=== PATIENT | female | born 1935 | race Caucasian/White ===

== ENCOUNTER 2017-12-01 15:47 | Inpatient (IN) | payer MEDICARE ==
[~2017-12-01] VITALS: Ht 165.1 cm; Wt 55.3 kg
[2017-12-01] MEDS ORDERED: ACETAMINOPHEN 500 MG TAB (TYLENOL) PO PRN (16:00)
[2017-12-01] MEDS ORDERED: PATIENT MAY USE OWN MEDS, ALL PO SCH (16:00)
[2017-12-01] MEDS ORDERED: ONDANSETRON 4 MG/2 ML (SDV) Z0FRAN IV PRN (16:00)
[2017-12-01] MEDS ORDERED: CLINDAMYCIN 900 MG/50 ML IVPB 50 ML IV NR (16:00)
--- OUTSIDE RECORDS SUMMARY | 2017-12-01 16:09 | XMS REPORT ---
Author Author Mery Wasserman Organization [facility] Address [address] [facility] [address] [place], [place] [address] Care Team Providers Care Associate Buyer Name Role Phone Mery Wasserman PCP Allergies and Adverse Reactions Name Reaction Notes NO KNOWN DRUG ALLERGIES Plan of Treatment Planned Activity Comments Planned Date Planned Time Plan/Goal VIDEO SWALLOW 10/30/2016 12:00 AM Medications Active Name Start Date Estimated Completion Date SIG Comments acetaminophen 160 mg/5 mL oral liquid take 20.3 milliliters by oral route every 4 hours alprazolam 0.25 mg oral tablet take 1 tablet (0.25 mg) by oral route at HS docusate sodium 60 mg/15 mL oral syrup take 25 milliliters (100 mg) by oral route once daily ergocalciferol (vitamin D2) 50,000 unit oral capsule take 1 capsule by oral route once daily x 14 days started 10-30-16 folic acid 800 mcg oral tablet take 1 tablet (0.8 mg) by oral route once daily gabapentin 250 mg/5 mL (5 mL) oral solution take 4 milliliters by oral route every 8 hrs for seizures levothyroxine 25 mcg oral tablet take 1 tablet (25 mcg) by oral route once daily melatonin 5 mg oral capsule take 1 capsule by oral route at HS methotrexate sodium 25 mg/mL injection solution inject 17.5mg subq one time a day every 7 days for RA methotrexate sodium 25 mg/mL injection solution inject 17.5mg subq one time a day every 7 days for RA methotrexate sodium 25 mg/mL injection solution inject 17.5mg subq one time a day every 7 days for RA Miralax 17 gram/dose oral powder take 17 gram mixed with 8 oz. water, juice, soda, coffee or tea by oral route once daily oxycodone 5 mg/5 mL oral solution take 5 milliliters (5 mg) by oral route every 4 hours as needed for pain paroxetine HCl 40 mg oral tablet take 1 tablet (40 mg) by oral route once daily Pravachol 40 mg oral tablet take 1 tablet (40 mg) by oral route once daily prednisone 5 mg oral tablet take 0.5 mg/kg by oral route once daily senna 8.8 mg/5 mL oral syrup take 2 milliliters by oral route every 12 hours trazodone 100 mg oral tablet take 1 tablet (100 mg) by oral route once daily at bedtime Discontinued Name Start Date Discontinued Date SIG Comments Retin-A topical cream 0.025 % 10/30/2016 apply to the affected area(s) by topical route once daily at bedtime Orencia subcutaneous syringe 125 mg/mL 10/30/2016 inject 1 milliliter (125 mg) by subcutaneous route once weekly Rheumatrex oral tablets,dose pack 2.5 mg 10/30/2016 prednisone oral 10/30/2016 Synthroid oral 10/30/2016 Paxil oral 10/30/2016 Ambien oral 10/30/2016 Xanax oral 10/30/2016 Hizentra subcutaneous 10/30/2016 Problem List Not available. Vital Signs Date Time BP-Sys(mm[Hg] BP-Tram(mm[Hg]) HR(bpm) RR(rpm) Temp WT HT HC BMI BSA BMI Percentile O2 Sat(%) 10/30/2016 10:15:00 AM 100 mmHg 68 mmHg 97 bpm 16 rpm 99.9 F 104.25 lbs 67 in 16.33 kg/m2 1.50 m2 91 % Social History Name Description Comments non smoker No Alcohol Use Tobacco Never smoker History of Procedures Not available. Results Summary Not available. History Of Immunizations Not available. History of Past Illness Name Date of Onset Comments Actinic keratoses Lentigines Seborrheic keratoses Dermatofibroma Verruca Vulgaris Neoplasm of skin Seborrheic dermatitis Scar/Cicatrix Impetigo Xerosis of skin Alopecia Mitral valve prolapse Cataract Rheumatoid arthritis Dysphagia Oct 30 2016 11:20AM Payers Not available. History of Encounters Visit Date Visit Type Provider 10/30/2016 Office visit Mery Wasserman MD
--- OUTSIDE RECORDS SUMMARY | 2017-12-01 16:09 | XMS REPORT ---
Author Author Reyes Cervantes [facility] Address [address] [place], [place] [id number] Care Team Providers Care Victim Advocate Name Role Phone Reyes Cervantes PCP ArnoldMery griffin PreferredProvider Allergies and Adverse Reactions Name Reaction Notes NO KNOWN DRUG ALLERGIES Plan of Treatment Not available. Medications Active Name Start Date Estimated Completion Date SIG Comments acetaminophen 160 mg/5 mL oral liquid take 20.3 milliliters by oral route every 4 hours docusate sodium 60 mg/15 mL oral syrup take 25 milliliters (100 mg) by oral route once daily ergocalciferol (vitamin D2) 50,000 unit oral capsule take 1 capsule by oral route once daily x 14 days started 2-10-17 melatonin 5 mg oral capsule take 1 [...] every 4 hours as needed for pain prednisone 5 mg oral tablet take 0.5 mg/kg by oral route once daily senna 8.8 mg/5 mL oral syrup take 2 milliliters by oral route every 12 hours folic acid 400 mcg oral tablet 11/05/2016 06/03/2017 take 1 tablet (0.4 mg) by oral route once daily for 30 days trazodone 100 mg oral tablet 11/05/2016 05/04/2017 take 1 tablet (100 mg) by oral route once daily at bedtime for 30 days paroxetine HCl 40 mg oral tablet 11/05/2016 05/04/2017 take 1 tablet (40 mg) by oral route once daily for 30 days Pravachol 40 mg oral tablet 11/05/2016 05/04/2017 take 1 tablet (40 mg) by oral route once daily for 30 days levothyroxine 25 mcg oral tablet 11/05/2016 05/04/2017 take 1 tablet (25 mcg) by oral route once daily for 30 days alprazolam 0.25 mg oral tablet 11/05/2016 12/05/2016 take 1 tablet (0.25 mg) by oral route at HS for 30 days Discontinued Name Start Date Discontinued Date SIG [...] 10/30/2016 Xanax oral 10/30/2016 Hizentra subcutaneous 10/30/2016 gabapentin 250 mg/5 mL (5 mL) oral solution 11/12/2016 11/17/2016 take 4 milliliters by oral route every 8 hrs for seizures for 30 days Problem List Not available. Vital Signs Date Time BP-Sys(mm[Hg] BP-Tram(mm[Hg]) HR(bpm) RR(rpm) Temp WT HT HC BMI BSA BMI Percentile O2 Sat(%) 11/13/2016 3:38:00 PM 124 mmHg 62 mmHg 86 bpm 16 rpm 98 F 106 lbs 95 % 10/30/2016 10:15:00 AM 100 mmHg 68 mmHg 97 bpm 16 rpm 99.9 F 104.25 lbs 67 in 16.3277 kg/m 1.4951 m 91 % Social History Name Description Comments non smoker No Alcohol Use Tobacco Never smoker History of Procedures Date Ordered Description Order Status 10/30/2016 12:00 AM CINE/VID X-RAY THROAT/ESOPH Returned Results Summary Not available. History Of Immunizations Not available. History of Past Illness Name Date of Onset Comments Actinic keratoses Lentigines Seborrheic keratoses Dermatofibroma Verruca Vulgaris Neoplasm of skin Seborrheic dermatitis Scar/Cicatrix Impetigo Xerosis of skin Alopecia Mitral valve prolapse Cataract Rheumatoid arthritis Dysphagia Oct 30 2016 11:20AM Oropharyngeal dysphagia Nov 13 2016 3:42PM Gastrostomy tube dependent Nov 13 2016 3:42PM Seizure prophylaxis Nov 13 2016 3:42PM Skin lesions Nov 13 2016 3:42PM Payers Insurance Name Company Name Plan Name Plan Number Policy Number Policy Group Number Start Date Medicare RHC Medicare RHC [id number] Wednesday, 2001 [employer]BS [employer] [facility] [id number] Thursday, 2008 Medicare Part A Medicare - Lab/Xray [id number] Wednesday, December 19, 2001 History of Encounters Visit Date Visit Type Provider 11/13/[address] Reyes Cervantes MD 10/30/2016 Office visit Mery Wasserman MD
--- OUTSIDE RECORDS SUMMARY | 2017-12-01 16:09 | XMS REPORT ---
Author Author Reyes Cervantes [facility] Address [address] [facility] [address] [place], [place] [address] Care Team Providers Care Strip Machine Operator Name Role Phone Reyes Cervantes PCP ArnoldMery [...] oral route at HS for 30 days gabapentin 250 mg/5 mL (5 mL) oral solution 11/12/2016 12/12/2016 take 4 milliliters by oral route every 8 hrs for seizures for 30 days Discontinued Name Start Date [...] arthritis Dysphagia Oct 30 2016 11:20AM Payers Insurance Name Company Name Plan Name Plan Number Policy Number Policy Group Number Start Date Medicare RHC Medicare RHC [id number] Wednesday, 2001 BCBS [employer] [facility] [id number] Thursday, 2008 Medicare Part A Medicare - Lab/Xray [id number] Wednesday, December 19, 2001 History of Encounters Visit Date Visit Type Provider 11/13/[address] Reyes Cervantes MD 10/30/2016 Office visit Mery Wasserman MD
--- OUTSIDE RECORDS SUMMARY | 2017-12-01 16:09 | XMS REPORT ---
Author Author Mery Wasserman Organization [facility] Address [address] [place], [place] [address] Care Team Providers Care Dividend Clerk Name Role Phone Mery Wasserman PCP Mery Wasserman PreferredProvider Allergies and Adverse Reactions Name Reaction [...] Group Number Start Date Medicare RHC Medicare [facility] [id number] Wednesday, 2001 BCBS [employer] [facility] [id number] Thursday, 2008 Medicare Part A Medicare - Lab/Xray [id number] Wednesday, December 19, 2001 History of Encounters Visit Date Visit Type Provider 10/30/2016 Office visit Mery Wasserman MD
--- OUTSIDE RECORDS SUMMARY | 2017-12-01 16:10 | XMS REPORT ---
Author Author Mery Wasserman Organization [facility] Address [address] [place], [place] [address] Care Team Providers Care Director Private Name Role Phone Mery Wasserman PCP Mery [...] Group Number Start Date Medicare RHC Medicare [facility] [id number] Wednesday, 2001 BCBS Bcbs [facility] [id number] Thursday, 2008 Medicare Part A Medicare - Lab/Xray [id number] Wednesday, December 19, 2001 History of Encounters Visit Date Visit Type Provider 10/30/2016 Office visit Mery Wasserman MD
--- OUTSIDE RECORDS SUMMARY | 2017-12-01 16:10 | XMS REPORT | CCD ---
Author Author GRANT SPARKS Unknown Address [address] [facility] [address] [place] [address] Care Team Providers Care Yarn Dumper Name Role Phone DK SALGADO, SAIRA ROJAS Attphys S., FABRICIO A NASST O., ISAIAS B NASST G., GEOVANNY NASST M., CANDIS NASST T., LAKYN NASST D., DJOANNA NASST H., NANCY NASST D., KAREN NASST D., ISAIAS T NASST M., SILVESTRE NASST S., SUNITA [place] NASST B., TITO NASST S., SUNG NASST A., TYE Peguero NASST S., ALLEN Yee NASST R., JADE NASST Allergies Allergy Code Allergy Type Reaction Status NO KNOWN DRUG ALLERGIES - NKDA 0 Drug allergy Active Active Medications Medication Code Dose Units Frequency Route Modification Start Date/Time traMADol HCl 50MG Oral Tablet 043458 50 MILLIGRAMS FOUR TIMES A DAY BY MOUTH 03/10/2017 14:35 Prescription Detail 50 MILLIGRAMS BY MOUTH FOUR TIMES A DAY x 1 week, then q 4 hrs PRN pain HYDROcodone bitartrate-acetaminophen 5MG-325MG Oral Tablet 519797 1 TABLET NEEDED BY MOUTH 03/10/2017 14 :34 Prescription Detail 1 TABLET BY MOUTH NEEDED Acetaminophen 325MG Oral Tablet 320948 650 MILLIGRAMS NEEDED BY MOUTH 03/10/2017 14:33 Prescription Detail 650 MILLIGRAMS BY MOUTH NEEDED Cephalexin 500MG Oral Capsule 644273 500 MILLIGRAMS EVERY 12 HOURS BY MOUTH 03/10/2017 14:33 Prescription Detail 500 MILLIGRAMS BY MOUTH EVERY 12 HOURS Mupirocin 2% Topical application Ointment 788884 1 EACH TWO TIMES A DAY TOPICAL APPLICATION 03/10/2017 14: 33 Prescription Detail 1 EACH TOPICAL APPLICATION TWO TIMES A DAY Aspirin 325MG Oral Tablet, Enteric Coated 201714 1 TABLET TWO TIMES A DAY BY MOUTH 03/01/2017 07:46 Prescription Detail 1 TABLET BY MOUTH TWO TIMES A DAY start 24hrs after the last Xarleto dose for 30 days Caltrate 600 + D 600MG-200IU Oral Tablet 9740488 1 EACH DAILY ORAL 03/01/2017 07:46 Prescription Detail 1 EACH ORAL DAILY Folic Acid 800 MCG Oral Tablet [id number] 800 MCG DAILY ORAL 03/01/2017 07:46 Prescription Detail 800 MCG ORAL DAILY Multivitamin Oral Tablet 4281897 1 EACH DAILY ORAL 03/01/2017 07:46 Prescription Detail 1 EACH ORAL DAILY Natural Fish Oil 1200 MG Oral Capsule, Liquid Filled [id number] 1200 MG DAILY ORAL 03/01/2017 07:46 Prescription Detail 1200 MG ORAL DAILY Orencia 250MG Intravenous Powder for Solution 689731 250 MILLIGRAMS MONTHLY INTRAVENOUS 03/01/2017 07:46 Prescription Detail 250 MILLIGRAMS INTRAVENOUS MONTHLY Paxil 40MG Oral Tablet 932784 40 MILLIGRAMS AT BEDTIME ORAL 03/01/2017 07:46 Prescription Detail 40 MILLIGRAMS ORAL AT BEDTIME Pravastatin Sodium 40MG Oral Tablet 650226 40 MILLIGRAMS DAILY ORAL 03/01/2017 07:46 Prescription Detail 40 MILLIGRAMS ORAL DAILY Synthroid 25MCG Oral Tablet 781774 25 MCG DAILY ORAL 03/01/2017 07:46 Prescription Detail 25 MCG ORAL DAILY traZODone hydrochloride 50MG Oral Tablet 775121 1.5 TABLET AT BEDTIME ORAL 03/01/2017 07:46 Prescription Detail 1.5 TABLET ORAL AT BEDTIME Vitamin D 1000IU Oral Tablet 541858 0900 INTERNATIONAL UNITS FOUR TIMES A DAY ORAL 03/01/2017 07:46 Prescription Detail 1000 INTERNATIONAL UNITS ORAL FOUR TIMES A DAY Xanax 0.5MG Oral Tablet 072583 0.5 MILLIGRAMS AT BEDTIME ORAL 03/01/2017 07:46 Prescription Detail 0.5 MILLIGRAMS ORAL AT BEDTIME Docusate Sodium 100MG Oral Capsule, Liquid Filled 2527473 100 MILLIGRAMS TWO TIMES A DAY BY MOUTH 2016 07:44 Prescription Detail 100 MILLIGRAMS BY MOUTH TWO TIMES A DAY as needed for constipation Problems Problem Code Start Date Resolved Date Status Capital femoral epiphyseal fracture of left hip, initial encounter for closed fracture 925112693 02/25/2017 Active Post op pain 981050296 02/25/2017 Active Procedures Procedure Code Procedure Type Date Reposition Left Upper Femur with Internal Fixation Device, Percutaneous Ap [id number] ICD-10 PCS 02/25/2017 PT THERAPEUTIC EXERCISES [address] 2016 OT EVAL; MOD 037120610 SNOMED CT 02/27/2017 PT THERAPEUTIC ACT. ONE ON ONE EA [address] 02/26/2017 PT EVALUATION; LOW 687939401 SNOMED CT 02/26/2017 HIP [address] 02/26/2017 CT EXT LOWER W/O CONTRAST 642303585 SNOMED CT 02/25/2017 HIP COMP MIN [address] 02/25/2017 CT HEAD W/O CONTRAST 363031826 SNOMED CT 02/25/2017 BASIC METABOLIC PANEL 592806118 SNOMED CT 02/27/2017 CBC W/ AUTO DIFF (RFLX MAN DIFF IF IND) 9463878 SNOMED CT 02/27/2017 UA ROUTINE C&S IF IND 563816435 SNOMED CT 02/25/2017 TYPE AND SCREEN 46551159 SNOMED CT 02/25/2017 BASIC METABOLIC PANEL 858286585 SNOMED CT 02/25/2017 CBC W/ AUTO DIFF (RFLX MAN DIFF IF IND) 4041945 SNOMED CT 02/25/2017 FLUOROSCOPY < [address] 02/26/2017 INCENTIVE SPIROMETRY X [address] 02/26/2017 ^CBC W/ MANUAL DIFF 00484173 SNOMED CT 02/27/2017 ^UA AUTO DIPSTICK ONLY 396246684 SNOMED CT 02/25/2017 ^CBC W/ MANUAL DIFF 95762184 SNOMED CT 02/25/2017 Results BASIC METABOLIC PANEL - Collect Date/Time: 02/27/2017 06:15 Test Name Code Test Result Test Units Test Ref Range GLUCOSE 2345-7 107 MG/DL L=70 H=100 SODIUM 2951-2 138 MEQ/L L=135 H=148 POTASSIUM 2823-3 3.9 MEQ/L L=3.5 H=5.3 CHLORIDE 2075-0 104 MEQ/L L=96 H=110 CO2 2028-9 27 MEQ/L L=22 H=29 BUN 3094-0 5 MG/DL L=8 H=22 CREATININE 2160-0 0.7 MG/DL L=0.6 H=1.6 CALCIUM 86368-7 9.7 MG/DL L=8.2 H=10.6 AGE 28756-9 81 yrs GFR NonAA 90095-0 81 GFR AA 72027-1 98 eGFR 05417-7 >60 N/A eGFR AA* 30271-5 >60 N/A BASIC METABOLIC PANEL - Collect Date/Time: 02/25/2017 10:50 Test Name Code Test Result Test Units Test Ref Range GLUCOSE 2345-7 109 MG/DL L=70 H=100 SODIUM 2951-2 136 MEQ/L L=135 H=148 POTASSIUM 2823-3 4.0 MEQ/L L=3.5 H=5.3 CHLORIDE 2075-0 102 MEQ/L L=96 H=110 CO2 2028-9 28 MEQ/L L=22 H=29 BUN 3094-0 15 MG/DL L=8 H=22 CREATININE 2160-0 0.7 MG/DL L=0.6 H=1.6 CALCIUM 40886-9 10.9 MG/DL L=8.2 H=10.6 AGE 44415-8 81 yrs GFR NonAA 41406-4 81 GFR AA 78041-0 98 eGFR 16893-2 >60 N/A eGFR AA* 12386-1 >60 N/A CBC W/ AUTO DIFF (RFLX MAN DIFF IF IND) - Collect Date/Time: 02/27/2017 06:15 Test Name Code Test Result Test Units Test Ref Range WBC 73124-0 11.9 TH/CMM L=4.5 H=10.8 RBC 789-8 3.83 ML/CMM L=4.20 H=5.40 HGB 718-7 12.2 G/DL L=12.0 H=16.0 HCT 4544-3 38.5 % L=37.0 H=47.0 MCV 19378-4 101 FL L=81 H=99 MCH 69063-9 31.9 PG L=27.0 H=33.0 MCHC 20707-1 31.7 G/DL L=31.0 H=36.0 [place] [address]-5 51 FL L=36 H=50 [place] [address]-3 13.9 % L=0.0 H=14.8 MPV 48646-8 10.0 FL L=9.3 H=12.5 PLT 777-3 121 TH/CMM L=130 H=440 NRBC# 37819-2 0.00 TH/CMM L=0.00 H=0.00 NRBC% 11381-6 0.0 /100WBC L=0.0 H=2.0 %NEUT 19230-7 84.7 % %LYMP 38487-9 5.0 % %MONO 48868-3 8.2 % %EOS 26915-8 1.3 % %BASO 20153-4 0.3 % #NEUT 27157-1 10.08 TH/CMM L=2.10 H=8.20 #LYMP 37953-4 0.60 TH/CMM L=0.90 H=5.20 #MONO 72626-8 0.97 TH/CMM L=0.16 H=1.00 #EOS 94241-5 0.16 TH/CMM L=0.00 H=0.80 #BASO 45266-5 0.03 TH/CMM L=0.00 H=0.20 SEGS 63012-5 84 % BANDS 52604-5 1 % LYMPHS 44896-1 7 % MONOS 12443-3 8 % MANUAL DIFF 57662-4 SEE BELOW N/A CBC W/ AUTO DIFF (RFLX MAN DIFF IF IND) - Collect Date/Time: 02/25/2017 10:50 Test Name Code Test Result Test Units Test Ref Range WBC 48618-7 17.7 TH/CMM L=4.5 H=10.8 RBC 789-8 4.00 ML/CMM L=4.20 H=5.40 HGB 718-7 13.0 G/DL L=12.0 H=16.0 HCT 4544-3 39.2 % L=37.0 H=47.0 MCV 11785-3 98 FL L=81 H=99 MCH 85187-3 32.5 PG L=27.0 H=33.0 MCHC 79033-7 33.2 G/DL L=31.0 H=36[place]0 [place] [address]-0 49 FL L=36 H=50 [place] [address]-2 13.6 % L=0.0 H=14.8 MPV 09622-9 10.3 FL L=9.3 H=12.5 PLT 777-3 151 TH/CMM L=130 H=440 NRBC# 41642-2 0.00 TH/CMM L=0.00 H=0.00 NRBC% 44496-9 0.0 /100WBC L=0.0 H=2.0 %NEUT 51290-5 89.9 % %LYMP 81426-3 2.7 % %MONO 60770-7 6.4 % %EOS 33839-0 0.2 % %BASO 77797-2 0.2 % #NEUT 83301-5 15.90 TH/CMM L=2.10 H=8.20 #LYMP 84179-4 0.48 TH/CMM L=0.90 H=5.20 #MONO 46381-8 1.13 TH/CMM L=0.16 H=1.00 #EOS 16993-5 0.03 TH/CMM L=0.00 H=0.80 #BASO 90504-1 0.04 TH/CMM L=0.00 H=0.20 SEGS 85625-6 90 % BANDS 07547-3 0 % LYMPHS 55177-7 4 % MONOS 42690-3 6 % MANUAL DIFF 45878-5 SEE BELOW N/A UA ROUTINE C&S IF IND - Collect Date/Time: 02/25/2017 11:49 Test Name Code Test Result Test Units Test Ref Range COLOR YELLOW N/A NL: YELLOW APPEARANCE CLEAR N/A NL: CLEAR SPEC GRAV 1.010 N/A NL: 1.002 - 1.022 pH 7.5 N/A NL: 5 - 9 PROTEIN NEGATIVE N/A NL: NEGATIVE mg/dl GLUCOSE NEGATIVE N/A NL: NEGATIVE mg/dl KETONE NEGATIVE N/A NL: NEGATIVE mg/dl BILIRUBIN NEGATIVE N/A NL: NEGATIVE BLOOD NEGATIVE N/A NL: NEGATIVE NITRITE NEGATIVE N/A NL: NEGATIVE LEUK SCREEN NEGATIVE N/A NL: NEGATIVE MICRO INDICATED? NOT INDICATED N/A TYPE AND SCREEN - Collect Date/Time: 02/25/2017 10:50 Test Name Code Test Result Test Units Test Ref Range ABO/Rh Type 895-3 O Positive N/A Antibody Screen-Gel 895-3 Negative N/A Function Status Unknown or Not Available. History of Immunizations Immunization Code Date influenza, split (incl. purified surface antigen) 15 07/01/2001 influenza, split (incl. purified surface antigen) 15 07/06/2002 influenza, split (incl. purified surface antigen) 15 06/28/2003 pneumococcal polysaccharide PPV23 33 10/16/2016 Plan of Treatment Unknown or Not Available. Social History Smoking Status Code Start Date End Date Never smoker [id number] Vital Signs Vital Sign Value Unit Date/Time Recent/Initial? BMI (Body Mass Index) 18.32 kg/m2 02/25/2017 10:57 Initial VS Weight Measured 111.98 [lb_av] 02/25/2017 10:57 Initial VS Height 66 [in_i] 02/25/2017 10:57 Initial VS BSA (Body Surface Area) 1.55 m2 02/25/2017 10:57 Initial VS BMI (Body Mass Index) 18.32 kg/m2 02/25/2017 11:30 Most Recent VS Weight Measured 113.5 [lb_av] 02/25/2017 11:30 Most Recent VS Height 66 [in_i] 02/25/2017 11:30 Most Recent VS BSA (Body Surface Area) 1.55 m2 02/25/2017 11:30 Most Recent VS BP Systolic 146 mm[Hg] 02/25/2017 11:30 Initial VS BP Diastolic 90 mm[Hg] 02/25/2017 11:30 Initial VS Respiratory Rate 18 /min 02/25/2017 11:30 Initial VS Heart Rate 84 /min 02/25/2017 11:30 Initial VS O2 % BldC Oximetry 93 % 02/25/2017 11:30 Initial VS Body Temperature 99.7 [degF] 02/25/2017 11:30 Initial VS BP Systolic 150 mm[Hg] 03/01/2017 08:00 Most Recent VS BP Diastolic 71 mm[Hg] 03/01/2017 08:00 Most Recent VS Respiratory Rate 18 /min 03/01/2017 08:00 Most Recent VS Heart Rate 80 /min 03/01/2017 08:00 Most Recent VS O2 % BldC Oximetry 93 % 03/01/2017 08:00 Most Recent VS Body Temperature 97.1 [degF] 03/01/2017 08:00 Most Recent VS Function Status Unknown or Not Available. Goals Unknown or Not Available. ASSESSMENTS Unknown or Not Available. Health Concerns Section Unknown or Not Available.
--- OUTSIDE RECORDS SUMMARY | 2017-12-01 16:10 | XMS REPORT | Continuity of Care Document ---
Author Author [facility] Organization [facility] Address Unknown Phone Unavailable Allergies There is no data. Medications There is no data. Problems There is no data. Procedures There is no data. Results There is no data. Encounters ACCT No. Visit Date/Time Discharge Status Pt. Type Provider Facility Loc./Unit Complaint [id number] 06/03/2017 15:16:11 06/03/2017 23:59:59 [facility] Outpatient Angel Garcia [id number] 03/17/2017 16:21:34 03/17/2017 23:59:59 [facility] Outpatient Grady Morris [id number] 11/13/2016 14:59:01 11/13/2016 23:59:59 [facility] Outpatient Reyes Cervantes [id number] 10/30/2016 13:47:01 10/30/2016 23:59:59 [facility] Outpatient Mery Wasserman
--- OUTSIDE RECORDS SUMMARY | 2017-12-01 16:10 | XMS REPORT | CCD ---
Author Author HARINI HILTON Unknown Address [address] [address] [address] [place] [address] Care Team Providers Care Laboratory Machinist Name Role Phone SELMA PACK DO Attphys SELMA PACK DO Prisurg Allergies Allergy Code Allergy Type Reaction Status NO KNOWN DRUG ALLERGIES - NKDA 0 Drug allergy Active Active Medications Medication Code Dose Units Frequency Route Modification Start Date/Time traMADol HCl 50MG Oral Tablet 029373 50 MILLIGRAMS FOUR TIMES A DAY BY MOUTH 03/10/2017 14:35 Prescription Detail 50 MILLIGRAMS BY MOUTH FOUR TIMES A DAY x 1 week, then q 4 hrs PRN pain HYDROcodone bitartrate-acetaminophen 5MG-325MG Oral Tablet 663778 1 TABLET NEEDED BY MOUTH 03/10/2017 14 :34 Prescription Detail 1 TABLET BY MOUTH NEEDED Acetaminophen 325MG Oral Tablet 277180 650 MILLIGRAMS NEEDED BY MOUTH 03/10/2017 14:33 Prescription Detail 650 MILLIGRAMS BY MOUTH NEEDED Cephalexin 500MG Oral Capsule 070952 500 MILLIGRAMS EVERY 12 HOURS BY MOUTH 03/10/2017 14:33 Prescription Detail 500 MILLIGRAMS BY MOUTH EVERY 12 HOURS Mupirocin 2% Topical application Ointment 323603 1 EACH TWO TIMES A DAY TOPICAL APPLICATION 03/10/2017 14: 33 Prescription Detail 1 EACH TOPICAL APPLICATION TWO TIMES A DAY Aspirin 325MG Oral Tablet, Enteric Coated 601103 1 TABLET TWO TIMES A DAY BY MOUTH 03/01/2017 07:46 Prescription Detail 1 TABLET BY MOUTH TWO TIMES A DAY start 24hrs after the last Xarleto dose for 30 days Caltrate 600 + D 600MG-200IU Oral Tablet 3244921 1 EACH DAILY ORAL 03/01/2017 07:46 Prescription Detail 1 EACH ORAL DAILY Folic Acid 800 MCG Oral Tablet 46632020632 800 MCG DAILY ORAL 03/01/2017 07:46 Prescription Detail 800 MCG ORAL DAILY Multivitamin Oral Tablet 1369811 1 EACH DAILY ORAL 03/01/2017 07:46 Prescription Detail 1 EACH ORAL DAILY Natural Fish Oil 1200 MG Oral Capsule, Liquid Filled [id number] 1200 MG DAILY ORAL 03/01/2017 07:46 Prescription Detail 1200 MG ORAL DAILY Orencia 250MG Intravenous Powder for Solution 205481 250 MILLIGRAMS MONTHLY INTRAVENOUS 03/01/2017 07:46 Prescription Detail 250 MILLIGRAMS INTRAVENOUS MONTHLY Paxil 40MG Oral Tablet 008952 40 MILLIGRAMS AT BEDTIME ORAL 03/01/2017 07:46 Prescription Detail 40 MILLIGRAMS ORAL AT BEDTIME Pravastatin Sodium 40MG Oral Tablet 338852 40 MILLIGRAMS DAILY ORAL 03/01/2017 07:46 Prescription Detail 40 MILLIGRAMS ORAL DAILY Synthroid 25MCG Oral Tablet 485162 25 MCG DAILY ORAL 03/01/2017 07:46 Prescription Detail 25 MCG ORAL DAILY traZODone hydrochloride 50MG Oral Tablet 022940 1.5 TABLET AT BEDTIME ORAL 03/01/2017 07:46 Prescription Detail 1.5 TABLET ORAL AT BEDTIME Vitamin D 1000IU Oral Tablet 135776 4075 INTERNATIONAL UNITS FOUR TIMES A DAY ORAL 03/01/2017 07:46 Prescription Detail 1000 INTERNATIONAL UNITS ORAL FOUR TIMES A DAY Xanax 0.5MG Oral Tablet 957404 0.5 MILLIGRAMS AT BEDTIME ORAL 03/01/2017 07:46 Prescription Detail 0.5 MILLIGRAMS ORAL AT BEDTIME Docusate Sodium 100MG Oral Capsule, Liquid Filled 4941689 100 MILLIGRAMS TWO TIMES A DAY BY MOUTH 2016 07:44 Prescription Detail 100 MILLIGRAMS BY MOUTH TWO TIMES A DAY as needed for constipation Problems Problem Code Start Date Resolved Date Status Capital femoral epiphyseal fracture of left hip, initial encounter for closed fracture 669115778 02/25/2017 Active Post op pain 135179688 02/25/2017 Active Procedures Procedure Code Procedure Type Date CX CHEST [id number] 10/12/2016 THORACIC SPINE 3 VIEWS (W/SWIMMERS) 75001178 SNOMED CT CT CERVICAL W/O CONTRAST 896084048 SNOMED CT 10/12/2016 CT HEAD W/O CONTRAST 897104027 SNOMED CT 10/12/2016 Results Unknown or Not Available. Function Status Unknown or Not Available. History of Immunizations Immunization Code Date influenza, split (incl. purified surface antigen) 15 07/01/2001 influenza, split (incl. purified surface antigen) 15 07/06/2002 influenza, split (incl. purified surface antigen) 15 06/28/2003 pneumococcal polysaccharide PPV23 33 10/16/2016 Plan of Treatment Unknown or Not Available. Social History Smoking Status Code Start Date End Date Never smoker [id number] Vital Signs Unknown or Not Available. Function Status Unknown or Not Available. Goals Unknown or Not Available. ASSESSMENTS Unknown or Not Available. Health Concerns Section Unknown or Not Available.
--- OUTSIDE RECORDS SUMMARY | 2017-12-01 16:10 | XMS REPORT ---
Author Author Mery Wasserman Organization [facility] Address [address] [place], [place] [id number] Care Team Providers Care Security Clerk Name Role Phone Mery Wasserman PCP [...] Number Start Date Medicare RHC Medicare RHC [id number] Wednesday, 2001 [id number] Thursday, 2008 Medicare Part A Medicare - Lab/Xray [id number] Wednesday, December 19, 2001 History of Encounters Visit Date Visit Type Provider 10/30/2016 Office visit Mery Wasserman MD
--- OUTSIDE RECORDS SUMMARY | 2017-12-01 16:10 | XMS REPORT ---
Author Author Reyes Cervantes [facility] Address [address] [place], [place] [id number] Care Team Providers Care Dealer Analyst Name Role Phone Reyes Cervantes PCP ArnoldMery [...] or tea by oral route once daily prednisone 5 [...] oral route at HS for 30 days oxycodone 5 mg/5 mL oral solution 11/19/2016 12/19/2016 take 5 milliliters (5 mg ) by oral route every 4 hours as needed for pain for 30 days Discontinued Name Start Date [...] 3:42PM Skin lesions Nov 13 2016 3:42PM Back Pain Oct 30 2016 10:18AM Closed nondisplaced fracture of posterior arch of first cervical vertebra with routine healing, subsequent encounter b 2016 10:18AM Closed nondisplaced fracture of fourth cervical vertebra with routine healing, unspecified fracture morphology, subsequent encounter Oct 30 2016 10:18AM Thoracic spine fracture Oct 30 2016 10:18AM Constipation by delayed colonic transit Oct 30 2016 10:18AM Neck pain Oct 30 2016 10:18AM Muscle spasm Oct 30 2016 10:18AM Rheumatoid arthritis Oct 30 2016 10:18AM Grief reaction Oct 30 2016 10:18AM Dysphagia Oct 30 2016 10:18AM Payers Insurance Name Company Name Plan Name Plan Number Policy Number Policy Group Number Start Date Medicare RHC Medicare RHC [id number] Wednesday, 2001 BCBS [facility] [id number] Thursday, 2008 Medicare Part A Medicare - Lab/Xray [id number] Wednesday, December 19, 2001 History of Encounters Visit Date Visit Type Provider 11/13/[address] Reyes Cervantes MD 10/30/2016 Office visit Mery Wasserman MD
[2017-12-01 16:23] VITALS: BP 132/63
--- NOTE | 2017-12-01 16:53 | Progress Note-Pre Operative ---
Pre-Operative Progress Note H&P Reviewed The H&P was reviewed, patient examined and no changes noted. Date Seen by Provider: Dec 01, 2017 Time Seen by Provider: 16:45 Date H&P Reviewed: Dec 01, 2017 Time H&P Reviewed: 16:45 Pre-Operative Diagnosis: suprapubic complex abscess DIPESH TONY MD Dec 01, 2017 4:53 pm
[2017-12-01] MEDS: NS IV 1000 ML 1,000 ML IV SCH (17:02)
[2017-12-01] MEDS: HYDROcodone/APAP 5 MG/325 MG (LORTAB) TAB PO PRN (17:47)
[2017-12-01] MEDS ORDERED: TRAM-42 PO (18:09)
[2017-12-01] MEDS ORDERED: ALPR0.254 PO ×2 (18:09)
[2017-12-01] MEDS ORDERED: CALC1TAB PO (18:09)
[2017-12-01] MEDS ORDERED: ACET325T38 PO (18:09)
[2017-12-01] MEDS ORDERED: FOLIC ACI PO (18:09)
[2017-12-01] MEDS ORDERED: [UNRECOGNIZED DRUG - CODE] (18:09)
[2017-12-01] MEDS ORDERED: LEVO25TA5 PO (18:09)
[2017-12-01] MEDS ORDERED: DOCU100C37 PO (18:09)
[2017-12-01] MEDS ORDERED: PRED5TAB46 PO (18:12)
[2017-12-01] MEDS ORDERED: [UNRECOGNIZED DRUG - OTHER] PO (18:12)
[2017-12-01] MEDS ORDERED: PRAV40TA PO (18:12)
[2017-12-01] MEDS ORDERED: MULT-642 PO (18:12)
[2017-12-01] MEDS ORDERED: CHOL100048 PO (18:27)
[2017-12-01] MEDS ORDERED: [UNRECOGNIZED DRUG - OTHER] (18:27)
[2017-12-01] MEDS ORDERED: TRAZ100T92 PO (18:27)
[2017-12-01] MEDS ORDERED: ASPI-586 PO (18:27)
[2017-12-01] MEDS ORDERED: METHOTREXATE SQ (18:27)
[2017-12-01] MEDS ORDERED: MELA10TA2 PO (18:27)
[2017-12-01] MEDS ORDERED: ALPRAZolam 0.25 MG (XANAX) TAB PO PRN (18:30)
--- NOTE | 2017-12-01 18:35 | History & Physicial ---
History of Present Illness History of Present Illness Reason for visit/HPI This is an 81 year old female who was brought to my office by her daughter with a 2 week history of worsening redness, pain and bleeding to her hernia area. Upon examination in my office, she was found to have a large suprapubic abscess with an open area inferiorly draining. It was decided to directly admit her for IV antibiotics and I and D of the abscess by surgery. Date of Admission Dec 01, 2017 at 16:04 Date Seen by Provider: Dec 01, 2017 Time Seen by Provider: 15:00 I consulted on this patient on 12/01/17 18:28 Attending Physician Negar Cormier DO Admitting Physician Gregg Jeff MD Consult Allergies and Home Medications Allergies Coded Allergies: No Known Drug Allergies (Unverified , 12/01/17) Home Medications Acetaminophen 325 Mg Tablet, 650 MG PO Q6H PRN for PAIN-MILD, (Reported) Alprazolam 0.25 Mg Tablet, 0.25 MG PO HS, (Reported) Alprazolam 0.25 Mg Tablet, 0.125 MG PO TID PRN for ANXIETY, (Reported) Aspirin 81 Mg Tablet.dr, 81 MG PO BID, (Reported) Calcium Carbonate/Vitamin D3 1 Each Tablet, 1 EACH PO DAILY, (Reported) Cholecalciferol (Vitamin D3) 1,000 Unit Capsule, 1,000 UNIT PO QID, (Reported) Docusate Sodium 100 Mg Capsule, 100 MG PO BID, (Reported) Levothyroxine Sodium 25 Mcg Tablet, 25 MCG PO DAILY, (Reported) Melatonin 10 Mg Tablet, 10 MG PO HS, (Reported) Multivitamin 1 Each Tablet, 1 EACH PO DAILY, (Reported) Pravastatin Sodium 40 Mg Tablet, 40 MG PO HS, (Reported) Prednisone 5 Mg Tab.ds.pk, 5 MG PO DAILY, (Reported) Tramadol HCl 50 Mg Tablet, 25 MG PO TID, (Reported) Trazodone HCl 100 Mg Tablet, 100 MG PO HS, (Reported) [Folic Aci] , 800 MG PO DAILY, (Reported) [Immunoglobulin Infus] , FRIDAYS, (Reported) [Methotrexate] , 0.5 ML SQ FRIDAYS, (Reported) [Parcoxeline Hcl] , 40 MG PO HS, (Reported) Patient Home Medication List Home Medication List Reviewed: Yes Past Dbauhyc-Dslvjj-Rghrmh Hx Patient Social History Alcohol Use: Denies Use Recreational Drug Use: No Smoking Status: Never a Smoker Physical Abuse Screen: No Sexual Abuse: No Recent Foreign Travel: No Contact w/other who traveled: No Recent Hopitalizations: No Recent Infectious Disease Expo: No Seasonal Allergies Seasonal Allergies: No Surgeries No Respiratory No Cardiovascular Yes (MITRAL VALVE PROLAPSE) Neurological No Genitourinary No Gastrointestinal Yes (HERNIA) Musculoskeletal Yes (4 BRKN NECK BONES, 3 RIBS BRKN, 1 BRKN LOWER BACK BONE, L HIP 3 PINS) Rheumatoid Arthritis, Fractures Endocrine History of Endocrine Disorders: No HEENT History of HEENT Disorders: No Cancer No Psychosocial History of Psychiatric Problem: No Integumentary History of Skin or Integumenta: No Blood Transfusions History of Blood Disorders: No Adverse Reaction to a Blood Tr: No Family Medical History Family Hx: FHx: rheumatoid arthritis 19 MOTHER Constitutional: weakness EENTM: No see HPI, No no symptoms reported, No ear discharge, No hearing loss, No ear pain, No blurred vision, No double vision, No eye pain, No tearing, No vision loss, No dental problems, No hoarseness, No mouth pain, No mouth swelling , No epistaxis, No nose congestion, No nose pain, No throat pain, No throat swelling, No other Respiratory: No no symptoms reported, No see HPI, No cough, No dyspnea on exertion, No hemoptysis, No orthopnea, No phlegm, No short of breath, No stridor , No wheezing, No other Cardiovascular: No no symptoms reported, No see HPI, No chest pain, No edema, No Hx of Intervention, No palpitations, No syncope, No vascular heart diseas, No other Gastrointestinal: No RUQ, No LUQ, No RLQ, No LLQ, No no symptoms reported, No see HPI, No abdominal pain, No constipation, No diarrhea, No dysphagia, No hematemesis, No heartburn, No jaundice, No loss of appetite, No melena, No nausea, No vomiting, No other Genitourinary: No no symptoms reported, No see HPI, No decreased output, No discharge, No dysuria, No frequency, No hematuria, No hesitancy, No incontinence , No nocturia, No pain, No other Musculoskeletal: joint pain Skin: other (red, bleeding area to hernia area) Psychiatric/Neurological: Anxiety, Weakness Physical Exam Vital Signs Vital Signs - First Documented 3/14/18 16:23 Temp 99.7 Pulse 79 Resp 18 B/P (MAP) 132/63 (86) Pulse Ox 95 O2 Delivery Room Air Capillary Refill : General Appearance: No Apparent Distress HEENT: Pharynx Normal Neck: Supple Respiratory: Lungs Clear Cardiovascular: Regular Rate, Rhythm Gastrointestinal: Normal Bowel Sounds, Soft, Tenderness (large baseball sized suprapubic abscess with erythema and tenderness and some purulent material draining inferiorly) Back: No CVA Tenderness Extremity: Non Tender, No Calf Tenderness, No Pedal Edema Neurologic/Psychiatric: Alert, Oriented x3, Abnormal Gait (using walker) Skin: Warm/Dry, Erythema (to suprapubic abscess as described above) Assessment/Plan Assessment and Plan 1. Suprapubic Abscess--admit to hospital for IV antibiotics and I and D by surgery 2. Rheumatoid Arthritis--stable but on chronic prednisone therapy and immunosuppressive agents so is immunocompromised 3. Anxiety--resume home meds Problems: Admission Diagnosis Admission Status: Inpatient Order (span 2 midnights) Reason for Inpatient Admission: Patient will require surgery as well as IV antibiotics expected to last at least 2 midnights Clinical Quality Measures DVT/VTE Risk/Contraindication: Risk Factor Score Per Nursin RFS Level Per Nursing on Admit: 2=Moderate NEGAR CORMIER DO Dec 01, 2017 18:35
[2017-12-01] MEDS: ALPRAZolam 0.25 MG (XANAX) TAB PO SCH (20:02)
[2017-12-01] MEDS: PARoxetine 20 MG (PAXIL) TAB PO SCH (20:03)
[2017-12-01 20:42] VITALS: BP 122/69
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
[2017-12-01 21:23] LABS: BASOPHILS % (AUTO) 0 % (0-10); EOSINOPHILS # (AUTO) 0.2 10^3/uL (0.0-0.3); EOSINOPHILS % (AUTO) 2 % (0-10); HEMATOCRIT 33 % (35-52); HEMOGLOBIN 11.2 G/DL (11.5-16.0); LYMPHOCYTES # (AUTO) 1.2 X 10^3 (1.0-4.0); LYMPHOCYTES % (AUTO) 16 % (12-44); MEAN CORPUSCULAR HEMOGLOBIN 32 PG (25-34); MEAN CORPUSCULAR HGB CONC 34 G/DL (32-36); MEAN CORPUSCULAR VOLUME 95 FL (80-99); MEAN PLATELET VOLUME 10.3 FL (7.4-10.4); MONOCYTES % (AUTO) 13 % (0-12); NEUTROPHILS # (AUTO) 5.3 X 10^3 (1.8-7.8); NEUTROPHILS % (AUTO) 69 % (42-75); PLATELET COUNT 157 10^3/uL (130-400); RED BLOOD COUNT 3.48 10^6/uL (4.35-5.85); RED CELL DISTRIBUTION WIDTH 14.5 % (10.0-14.5); WHITE BLOOD COUNT 7.7 10^3/uL (4.3-11.0)
[2017-12-01 21:44] LABS: ALANINE AMINOTRANSFERASE 16 U/L (0-55); ALBUMIN 3.2 GM/DL (3.2-4.5); ALKALINE PHOSPHATASE 63 U/L (40-136); BILIRUBIN,TOTAL 0.2 MG/DL (0.1-1.0); BUN/CREATININE RATIO 18; CALCIUM 9.8 MG/DL (8.5-10.1); CARBON DIOXIDE 27 MMOL/L (21-32); CHLORIDE 103 MMOL/L (98-107); CREATININE SERUM 0.65 MG/DL (0.60-1.30); GFR ESTIMATED > 60; GLUCOSE 75 MG/DL (70-105); POTASSIUM 3.8 MMOL/L (3.6-5.0); SODIUM 136 MMOL/L (135-145); TOTAL PROTEIN 5.8 GM/DL (6.4-8.2)
[2017-12-01] MEDS: CLINDAMYCIN 600 MG/50 ML IVPB 50 ML IV SCH (22:07)
[2017-12-02] VITALS: BP 141/64
[2017-12-02] MEDS: NS IV 1000 ML 1,000 ML IV SCH ×3 (02:03→10:28)
[2017-12-02 04:00] VITALS: BP 136/85
[2017-12-02] MEDS: predniSONE 5 MG TAB PO SCH (06:05)
[2017-12-02] MEDS: CLINDAMYCIN 600 MG/50 ML IVPB 50 ML IV SCH ×3 (06:05→21:39)
[2017-12-02 08:00] VITALS: BP 135/63
[2017-12-02] MEDS ORDERED: fentaNYL INJECTION 100 MCG/2 ML AMP IVP PRN ×3 (08:15→16:00)
[2017-12-02] MEDS ORDERED: PARO40TA3 PO (09:12)
[2017-12-02] MEDS ORDERED: PRED5TAB PO (09:12)
[2017-12-02] MEDS ORDERED: METH25VI57 SC (09:12)
[2017-12-02] MEDS ORDERED: FOLI0.4T2 PO (09:12)
[2017-12-02] MEDS ORDERED: IMMU2VIA SQ (09:17)
[2017-12-02 12:00] VITALS: BP 139/65
[2017-12-02] MEDS ORDERED: ALPRAZolam 0.25 MG (XANAX) TAB PO PRN (12:30)
[2017-12-02] MEDS ORDERED: ACETAMINOPHEN 325 MG TABLET/CAPLET (TYLENOL) PO PRN (12:30)
--- NOTE | 2017-12-02 12:35 | Progress Note (SOAP) ---
Subjective Date Seen by Provider: Dec 02, 2017 Time Seen by Provider: 12:31 Subjective/Events-last exam Fwup suprapubic abscess, RA, hypothyroidism, anxiety. Awaiting surgery. C/O cough. Objective Exam Vital Signs Date Time Temp Pulse Resp B/P (MAP) Pulse Ox O2 Delivery O2 Flow Rate FiO2 12/02/17 08:45 Room Air 12/02/17 08:00 100.1 75 20 135/63 (87) 93 Room Air 12/02/17 04:00 98.9 74 19 136/85 (102) 94 Room Air 12/02/17 00:00 98.0 69 17 141/64 (89) 96 Room Air 12/01/17 20:42 99.3 67 15 122/69 (86) 95 Room Air 12/01/17 20:15 Room Air 12/01/17 16:30 Room Air 12/01/17 16:23 99.7 79 18 132/63 (86) 95 Room Air I & O 12/02/17 07:00 Intake Total 1600 ml Output Total 1400 ml Balance 200 ml Capillary Refill : General Appearance: No Apparent Distress Neck: Supple Respiratory: Crackles (bases), Decreased Breath Sounds Cardiovascular: Regular Rate, Rhythm, Systolic Murmur Gastrointestinal: normal bowel sounds, non tender, soft Extremity: Non Tender, No Calf Tenderness, No Pedal Edema Neurologic/Psychiatric: Alert, Oriented x3 Skin: Erythema (suprapubic abscess area with induration and purulent drainage from opening inferiorly) Results Lab Laboratory Tests 12/01/17 21:15: White Blood Count 7.7, Red Blood Count 3.48L, Hemoglobin 11.2L, Hematocrit 33L, Mean Corpuscular Volume 95, Mean Corpuscular Hemoglobin 32, Mean Corpuscular Hemoglobin Concent 34, Red Cell Distribution Width 14.5, Platelet Count 157, Mean Platelet Volume 10.3, Neutrophils (%) (Auto) 69, Lymphocytes (%) (Auto) 16 , Monocytes (%) (Auto) 13H, Eosinophils (%) (Auto) 2, Basophils (%) (Auto) 0, Neutrophils # (Auto) 5.3, Lymphocytes # (Auto) 1.2, Monocytes # (Auto) 1.0, Eosinophils # (Auto) 0.2, Basophils # (Auto) 0.0, Sodium Level 136, Potassium Level 3.8, Chloride Level 103, Carbon Dioxide Level 27, Anion Gap 6, Blood Urea Nitrogen 12, Creatinine 0.65, Estimat Glomerular Filtration Rate > 60, BUN/ Creatinine Ratio 18, Glucose Level 75, Calcium Level 9.8, Total Bilirubin 0.2, Aspartate Amino Transf (AST/SGOT) 25, Alanine Aminotransferase (ALT/SGPT) 16, Alkaline Phosphatase 63, Total Protein 5.8L, Albumin 3.2 Assessment/Plan Assessment/Plan Assess & Plan/Chief Complaint 1. Suprapubic Abscess--on clindamycin, I and D with surgery today 2. Cough--decrease IVF rate, check stat CXR, start IS 3. RA--hold immunosuppressive agents while hospitalized except low dose prednisone 4. Hypothyroidism--home dose restarted 5. Anxiety--home meds restarted Clinical Quality Measures Admission Status Admission Dx 1. Suprapubic Abscess--admit to hospital for IV antibiotics and I and D by surgery 2. Rheumatoid Arthritis--stable but on chronic prednisone therapy and immunosuppressive agents so is immunocompromised 3. Anxiety--resume home meds DVT/VTE Risk/Contraindication: Risk Factor Score Per Nursin RFS Level Per Nursing on Admit: 2=Moderate TITO BLOOD DO Dec 02, 2017 12:34
[2017-12-02] MEDS ORDERED: NON-FORMULARY MEDICATION 1 EA EA (Cholecalciferol (Vitamin D3) (Vitamin D) 1,000 UNIT) PO SCH (13:00)
[2017-12-02] MEDS ORDERED: LACTATED RINGERS 1,000 ML IV PRN (13:31)
--- NOTE | 2017-12-02 13:34 | Diagnostic Imaging Report ---
CLINICAL INDICATION: Preop for possible hernia surgery. Patient has a cough. EXAM: Chest x-ray PA and lateral views. COMPARISON: None. FINDINGS: There are slightly hyperinflated lungs, increased retrosternal clear space, and flattened hemidiaphragms which can be seen with COPD changes. There is curvilinear opacities in the left lung base seen which may represent atelectasis and/or scarring, but superimposed infiltrate cannot be completely excluded. Remainder of lungs are clear. Pulmonary vasculature and cardiac silhouettes within normal limits. There is no pleural effusion or pneumothorax. Old healed left mid hemithorax rib fractures are noted. There are degenerative spurs involving the thoracic spine. There is compression deformity of an upper and lower thoracic vertebra. IMPRESSION: 1: There is curvilinear opacities in left lung base which may represent atelectasis or scarring, but superimposed infiltrate cannot be completely excluded. 2: COPD lung changes. Dictated by: Dictated on workstation # [id number]
[2017-12-02] MEDS ORDERED: proPOfol 200 MG/20 ML (DIPRIVAN) VIAL IV ONE (13:55)
[2017-12-02] MEDS ORDERED: fentaNYL INJECTION 100 MCG/2 ML AMP ONE (14:22)
[2017-12-02] MEDS ORDERED: SEVOFLURANE (ULTANE) 15 ML INHAL SOLN ONE (14:27)
[2017-12-02] MEDS ORDERED: ONDANSETRON 4 MG/2 ML (SDV) Z0FRAN IVP PRN (15:15)
[2017-12-02] MEDS ORDERED: morphine INJ 10 MG/ML 1ML (SYR OR VIAL) IVP PRN (15:15)
[2017-12-02] MEDS ORDERED: BUP/EPI 0.5% 1:200,000 (SENSORCAINE) 30 ML VIAL ONE (15:22)
--- NOTE | 2017-12-02 15:52 | Progress Note-Post Operative ---
Post-Operative Progess Note Surgeon (s)/Eyelet Riveter (s) Surgeon DIPESH TONY MD Eyelet Riveter: moe valentino RETAIL SERVICE SPECIALIST Pre-Operative Diagnosis suprapubic complex abscess Post-Operative Diagnosis same with necrosis. Procedure & Operative Findings Date of Procedure 12/02/17 Procedure Performed/Findings debridement mons pubis (subcutaneous and fascia 8x6cm) Anesthesia Type MAC with local Estimated Blood Loss Estimated blood loss (mL): minimal Specimens/Packing Specimens Removed mons pubis DIPESH TONY MD Dec 02, 2017 3:52 pm
--- NOTE | 2017-12-02 16:02 | Anesthesia-General Post-Op ---
MAC Patient Condition Mental Status/LOC: Same as Preop Cardiovascular: Satisfactory Nausea/Vomiting: Absent Respiratory: Satisfactory Pain: Controlled Complications: Absent Post Op Complications Complications None Follow Up Care/Instructions Patient Instructions None needed. Anesthesiology Discharge Order Discharge Order Patient is doing well, no complaints, stable vital signs, no apparent adverse anesthesia problems. No complications reported per nursing. GABBIE HAMILTON CRNA Dec 02, 2017 16:02
[2017-12-02 16:36] VITALS: BP 130/61
[2017-12-02] MEDS: VITAMIN D3 1,000 UNITS (CHOLECALCIFEROL) TABLET PO SCH ×2 (17:13→20:07)
[2017-12-02] MEDS: HYDROcodone/APAP 5 MG/325 MG (LORTAB) TAB PO PRN (18:02)
[2017-12-02 19:20] VITALS: BP 109/54
[2017-12-02] MEDS: DOCUSATE SODIUM 100 MG (COLACE) CAP PO SCH (20:07)
[2017-12-02] MEDS: ALPRAZolam 0.25 MG (XANAX) TAB PO SCH (20:07)
[2017-12-02] MEDS: SIMvastatin 20 MG (ZOCOR) TAB PO SCH (20:07)
[2017-12-02] MEDS: PARoxetine 20 MG (PAXIL) TAB PO SCH (20:07)
[2017-12-02] MEDS: ASPIRIN E.C. 81 MG (ECOTRIN) TAB PO SCH (20:07)
[2017-12-02] MEDS: traZODone 100 MG (DESYREL) TAB PO SCH (20:07)
[2017-12-02] MEDS ORDERED: NON-FORMULARY MEDICATION 1 EA EA (Paroxetine HCl 40 MG) PO SCH (21:00)
[2017-12-02] MEDS ORDERED: NON-FORMULARY MEDICATION 1 EA EA (Pravastatin Sodium (Pravachol) 40 MG) PO SCH (21:00)
[2017-12-02] MEDS ORDERED: ALPRAZolam 0.25 MG (XANAX) TAB PO SCH (21:00)
[2017-12-03 00:26] VITALS: BP 129/59
[2017-12-03] MEDS: NS IV 1000 ML 1,000 ML IV SCH (01:08)
[2017-12-03 04:42] VITALS: BP 130/56
[2017-12-03] MEDS: CLINDAMYCIN 600 MG/50 ML IVPB 50 ML IV SCH ×3 (06:16→21:48)
[2017-12-03] MEDS: predniSONE 5 MG TAB PO SCH (06:16)
[2017-12-03] MEDS: LEVOTHYROXINE 25 MCG (LEVOTHROID) TAB PO SCH (06:16)
[2017-12-03] MEDS: MULTIVIT W/MINERALS TAB (THERAGRAN M) PO SCH (06:16)
[2017-12-03] MEDS: CALCIUM CARB + VIT D 600 MG (CALCARB + D) TAB PO SCH (06:16)
[2017-12-03 08:00] VITALS: BP 139/67
[2017-12-03] MEDS: DOCUSATE SODIUM 100 MG (COLACE) CAP PO SCH ×2 (08:37→21:49)
[2017-12-03] MEDS: ASPIRIN E.C. 81 MG (ECOTRIN) TAB PO SCH ×2 (08:37→21:50)
[2017-12-03] MEDS: FOLIC ACID 1 MG TAB PO SCH (08:37)
[2017-12-03] MEDS: VITAMIN D3 1,000 UNITS (CHOLECALCIFEROL) TABLET PO SCH ×4 (08:37→21:49)
[2017-12-03] MEDS ORDERED: NON-FORMULARY MEDICATION 1 EA EA (Calcium Carbonate/Vitamin D3 (Caltrate 600 + D Tablet) 1 PO SCH (09:00)
[2017-12-03] MEDS ORDERED: MULTIVITAMIN PO SCH (09:00)
[2017-12-03] MEDS ORDERED: predniSONE 5 MG TAB PO SCH (09:00)
[2017-12-03] MEDS ORDERED: NON-FORMULARY MEDICATION 1 EA EA (Folic Acid 0.8 MG) PO SCH (09:00)
[2017-12-03] MEDS: BACITRACIN OINTMENT 28 GM TUBE TOP SCH ×2 (09:22→21:51)
--- NOTE | 2017-12-03 11:23 | Progress Note (SOAP) ---
Subjective Date Seen by Provider: Dec 03, 2017 Time Seen by Provider: 11:13 Subjective/Events-last exam Fwup suprapubic abscess, RA, hypothyroidism, anxiety, cough. Had I and D yesterday afternoon and wound packed. Pain controlled. Cough improving. Objective Exam Vital Signs Date Time Temp Pulse Resp B/P (MAP) Pulse Ox O2 Delivery O2 Flow Rate FiO2 12/03/17 08:00 97.7 72 18 139/67 (91) 95 Room Air 12/03/17 04:42 97.6 68 17 130/56 (80) 94 Room Air 12/03/17 00:26 97.8 65 16 129/59 (82) 95 Room Air 12/02/17 20:05 Room Air 12/02/17 19:20 98.0 69 18 109/54 (72) 95 Room Air 12/02/17 16:36 97.9 62 18 130/61 (84) 94 Room Air 12/02/17 12:00 99.1 66 18 139/65 (89) 95 Room Air I & O 12/03/17 07:00 Intake Total 1550 ml Output Total 1800 ml Balance -250 ml Capillary Refill : General Appearance: No Apparent Distress Neck: Supple Respiratory: Crackles Cardiovascular: Regular Rate, Rhythm Gastrointestinal: normal bowel sounds, non tender, soft Neurologic/Psychiatric: Alert, Oriented x3 Skin: Other (suprapubic abscess with packing in place and much less erythema and less pain) Results Lab Microbiology 12/02/17 Gram Stain - Final, Resulted 12/02/17 Anaerobic Culture, Resulted Pending 12/02/17 Surgical Culture - Preliminary, Resulted Staphylococcus aureus 12/01/17 MRSA Screen - Final, Complete Assessment/Plan Assessment/Plan Assess & Plan/Chief Complaint 1. Suprapubic Abscess--on clindamycin, I and D yesterday with packing in place , will keep through weekend on IV antibiotics due to higher risk for infection including necrotizing fasciitis due to immunocompromised state from DMARD therapy and chronic prednisone 2. Cough--improving, continue IS 3. RA--hold immunosuppressive agents while hospitalized except low dose prednisone 4. Hypothyroidism--home dose restarted 5. Anxiety--home meds restarted Clinical Quality Measures Admission Status Admission Dx 1. Suprapubic Abscess--admit to hospital for IV antibiotics and I and D by surgery 2. Rheumatoid Arthritis--stable but on chronic prednisone therapy and immunosuppressive agents so is immunocompromised 3. Anxiety--resume home meds DVT/VTE Risk/Contraindication: Risk Factor Score Per Nursin RFS Level Per Nursing on Admit: 2=Moderate TITO BLOOD DO Dec 03, 2017 11:23 am
[2017-12-03 12:00] VITALS: BP 144/71
--- NOTE | 2017-12-03 12:22 | Progress Note (SOAP) ---
Subjective Date Seen by Provider: Dec 03, 2017 Time Seen by Provider: 11:00 Subjective/Events-last exam doing well. pain controlled. tolerating diet. no fever/chills. Objective Exam Vital Signs Date Time Temp Pulse Resp B/P (MAP) Pulse Ox O2 Delivery O2 Flow Rate FiO2 12/03/17 08:00 97.7 72 18 139/67 (91) 95 Room Air 12/03/17 04:42 97.6 68 17 130/56 (80) 94 Room Air 12/03/17 00:26 97.8 65 16 129/59 (82) 95 Room Air 12/02/17 20:05 Room Air 12/02/17 19:20 98.0 69 18 109/54 (72) 95 Room Air 12/02/17 16:36 97.9 62 18 130/61 (84) 94 Room Air I & O 12/03/17 07:00 Intake Total 1550 ml Output Total 1800 ml Balance -250 ml Capillary Refill : General Appearance: No Apparent Distress HEENT: PERRL/EOMI Neck: Full Range of Motion Respiratory: Chest Non Tender, Lungs Clear Cardiovascular: Regular Rate, Rhythm Gastrointestinal: normal bowel sounds, non tender, soft Extremity: Normal Capillary Refill Neurologic/Psychiatric: Alert, Oriented x3 Skin: Normal Color, Other (wound packed/dry. no new area of redness/erythema) Results Lab Microbiology 12/02/17 Gram Stain - Final, Resulted 12/02/17 Anaerobic Culture, Resulted Pending 12/02/17 Surgical Culture - Preliminary, Resulted Staphylococcus aureus 12/01/17 MRSA Screen - Final, Complete Assessment/Plan Assessment/Plan Assess & Plan/Chief Complaint complex abscess mons pubis s/p debridement. continue abx. continue dressing change wet to dry BID. Clinical Quality Measures DVT/VTE Risk/Contraindication: Risk Factor Score Per Nursin RFS Level Per Nursing on Admit: 2=Moderate DIPESH TONY MD Dec 03, 2017 12:22
[2017-12-03 15:29] VITALS: BP 126/58
[2017-12-03] MEDS ORDERED: VANCOMYCIN INJECTION 0.1 MG in NS (IVPB) 250 ML IV SCH (16:00)
[2017-12-03] MEDS: VANCOMYCIN 1250 MG/NS 250 ML IVPB IV SCH ×2 (16:44)
[2017-12-03 19:41] VITALS: BP 150/68
[2017-12-03] MEDS: SIMvastatin 20 MG (ZOCOR) TAB PO SCH (21:49)
[2017-12-03] MEDS: ALPRAZolam 0.25 MG (XANAX) TAB PO SCH (21:49)
[2017-12-03] MEDS: traZODone 100 MG (DESYREL) TAB PO SCH (21:49)
[2017-12-03] MEDS: PARoxetine 20 MG (PAXIL) TAB PO SCH (21:50)
[2017-12-03] MEDS: MELATONIN 3 MG TABLET PO SCH (21:50)
[2017-12-04] VITALS: BP 153/66
[2017-12-04 04:38] VITALS: BP 168/74
[2017-12-04 05:02] LABS: BASOPHILS % (AUTO) 0 % (0-10); EOSINOPHILS # (AUTO) 0.3 10^3/uL (0.0-0.3); EOSINOPHILS % (AUTO) 3 % (0-10); HEMATOCRIT 36 % (35-52); HEMOGLOBIN 12.2 G/DL (11.5-16.0); LYMPHOCYTES # (AUTO) 1.3 X 10^3 (1.0-4.0); LYMPHOCYTES % (AUTO) 15 % (12-44); MEAN CORPUSCULAR HEMOGLOBIN 32 PG (25-34); MEAN CORPUSCULAR HGB CONC 34 G/DL (32-36); MEAN CORPUSCULAR VOLUME 93 FL (80-99); MEAN PLATELET VOLUME 10.4 FL (7.4-10.4); MONOCYTES # (AUTO) 1.1 X 10^3 (0.0-1.0); MONOCYTES % (AUTO) 12 % (0-12); NEUTROPHILS % (AUTO) 69 % (42-75); PLATELET COUNT 214 10^3/uL (130-400); RED BLOOD COUNT 3.85 10^6/uL (4.35-5.85); RED CELL DISTRIBUTION WIDTH 14.3 % (10.0-14.5); WHITE BLOOD COUNT 8.7 10^3/uL (4.3-11.0)
[2017-12-04] MEDS: CLINDAMYCIN 600 MG/50 ML IVPB 50 ML IV SCH ×3 (06:43→22:55)
[2017-12-04] MEDS: CALCIUM CARB + VIT D 600 MG (CALCARB + D) TAB PO SCH (06:44)
[2017-12-04] MEDS: predniSONE 5 MG TAB PO SCH (06:44)
[2017-12-04] MEDS: MULTIVIT W/MINERALS TAB (THERAGRAN M) PO SCH (06:44)
[2017-12-04] MEDS: LEVOTHYROXINE 25 MCG (LEVOTHROID) TAB PO SCH (06:44)
[2017-12-04 08:00] VITALS: BP 153/67
[2017-12-04] MEDS: VITAMIN D3 1,000 UNITS (CHOLECALCIFEROL) TABLET PO SCH ×4 (08:39→20:37)
[2017-12-04] MEDS: BACITRACIN OINTMENT 28 GM TUBE TOP SCH ×2 (08:39→20:38)
[2017-12-04] MEDS: FOLIC ACID 1 MG TAB PO SCH (08:40)
[2017-12-04] MEDS: DOCUSATE SODIUM 100 MG (COLACE) CAP PO SCH ×2 (08:40→20:37)
[2017-12-04] MEDS: ASPIRIN E.C. 81 MG (ECOTRIN) TAB PO SCH ×2 (08:40→20:37)
[2017-12-04 12:00] VITALS: BP 137/67
--- NOTE | 2017-12-04 12:48 | Progress Note-Standard ---
Standard Progress Note Progress Notes/Assess & Plan Date Seen by Provider: Dec 04, 2017 Time Seen by Provider: 12:05 Progress/Assessment & Plan No specific complaints. Wound has been dressed by the nursing staff. Final Diagnosis Suprapubic abscess RANDY HODGES MD Dec 04, 2017 12:48 pm
[2017-12-04 15:40] VITALS: BP 136/64
[2017-12-04] MEDS: VANCOMYCIN 1250 MG/NS 250 ML IVPB IV SCH ×2 (16:38)
[2017-12-04 19:45] VITALS: BP 132/58
[2017-12-04] MEDS: ALPRAZolam 0.25 MG (XANAX) TAB PO SCH (20:36)
[2017-12-04] MEDS: traZODone 100 MG (DESYREL) TAB PO SCH (20:37)
[2017-12-04] MEDS: MELATONIN 3 MG TABLET PO SCH (20:37)
[2017-12-04] MEDS: SIMvastatin 20 MG (ZOCOR) TAB PO SCH (20:37)
[2017-12-04] MEDS: PARoxetine 20 MG (PAXIL) TAB PO SCH (20:37)
[2017-12-05] VITALS: BP_SYST 159; BP_SYST 172; BP_DIAS 65; BP_DIAS 75
[2017-12-05 04:00] VITALS: BP 147/68
[2017-12-05] MEDS: CLINDAMYCIN 600 MG/50 ML IVPB 50 ML IV SCH ×3 (06:09→21:30)
[2017-12-05] MEDS: predniSONE 5 MG TAB PO SCH (06:09)
[2017-12-05] MEDS: CALCIUM CARB + VIT D 600 MG (CALCARB + D) TAB PO SCH (06:09)
[2017-12-05] MEDS: MULTIVIT W/MINERALS TAB (THERAGRAN M) PO SCH (06:09)
[2017-12-05] MEDS: LEVOTHYROXINE 25 MCG (LEVOTHROID) TAB PO SCH (06:09)
[2017-12-05 08:00] VITALS: BP 140/62
[2017-12-05] MEDS: ASPIRIN E.C. 81 MG (ECOTRIN) TAB PO SCH ×2 (08:38→20:01)
[2017-12-05] MEDS: VITAMIN D3 1,000 UNITS (CHOLECALCIFEROL) TABLET PO SCH ×4 (08:38→20:01)
[2017-12-05] MEDS: FOLIC ACID 1 MG TAB PO SCH (08:38)
[2017-12-05] MEDS: BACITRACIN OINTMENT 28 GM TUBE TOP SCH ×2 (08:38→20:03)
[2017-12-05] MEDS: DOCUSATE SODIUM 100 MG (COLACE) CAP PO SCH ×2 (08:38→20:01)
[2017-12-05 12:00] VITALS: BP 147/67
--- NOTE | 2017-12-05 12:40 | Progress Note-Standard ---
Standard Progress Note Progress Notes/Assess & Plan Date Seen by Provider: Dec 05, 2017 Time Seen by Provider: 11:55 Progress/Assessment & Plan No specific complaints. Wound has been dressed by the nursing staff. wound drainage reported to be decreasing. Final Diagnosis abscess of the suprapubic region RANDY HODGES MD Dec 05, 2017 12:40 pm
--- NOTE | 2017-12-05 13:16 | Progress Note-Hospitalist ---
Subjective HPI/CC On Admission Date Seen by Provider: Dec 04, 2017 Time Seen by Provider: 11:15 Subjective/Events-last exam Mrs. Galindo denies any significant suprapubic pain chills fever or night sweats. She reports that her strength and appetite are both improving. She's had no nausea or abdominal pain. Objective Exam Vital Signs Vital Signs Date Time Temp Pulse Resp B/P (MAP) Pulse Ox O2 Delivery O2 Flow Rate FiO2 12/01/17 16:23 99.7 79 18 132/63 (86) 95 Room Air Capillary Refill : General Appearance: No Apparent Distress, Thin Respiratory: Lungs Clear, Normal Breath Sounds, No Accessory Muscle Use, No Respiratory Distress Cardiovascular: Regular Rate, Rhythm, No Edema, No Gallop, No JVD, No Murmur Skin: Normal Color, Other (Suprapubic wound packed no significant induration no exudate noted from wound and no pain to palpation surrounding wound minimal wound edge erythema only.) Results/Procedures Lab Patient resulted labs reviewed. Assessment/Plan Assessment and Plan Assess & Plan/Chief Complaint 1. MRSA suprapubic abscess post IND on vancomycin and clindamycin to be discharged Wednesday likely on clindamycin. Clinical Quality Measures DVT/VTE Risk/Contraindication: Risk Factor Score Per Nursin RFS Level Per Nursing on Admit: 2=Moderate ALFONSO HARO MD Dec 05, 2017 13:15
--- NOTE | 2017-12-05 13:30 | Progress Note-Hospitalist ---
Subjective HPI/CC On Admission Date Seen by Provider: Dec 05, 2017 Time Seen by Provider: 13:00 Subjective/Events-last exam Patient ambulating without any reported difficulty. She reports her appetite is good with good by mouth intake and denies any surgical wound related pain. She's had no night sweats chills or fever and remains afebrile. She denies diarrhea as well. Objective Exam Vital Signs Vital Signs Date Time Temp Pulse Resp B/P (MAP) Pulse Ox O2 Delivery O2 Flow Rate FiO2 12/01/17 16:23 99.7 79 18 132/63 (86) 95 Room Air Capillary Refill : General Appearance: No Apparent Distress, Thin Respiratory: Lungs Clear, Normal Breath Sounds, No Accessory Muscle Use, No Respiratory Distress Cardiovascular: Regular Rate, Rhythm, No Edema, No Gallop, No JVD, No Murmur Skin: Other (Surgical wound suprapubic site packed no induration pain or erythema noted to palpation.) Results/Procedures Lab Patient resulted labs reviewed. Assessment/Plan Assessment and Plan Assess & Plan/Chief Complaint 1. MRSA suprapubic abscess post IND on vancomycin and clindamycin to be discharged Wednesday likely on clindamycin. Considering this with the patient and her daughter at the bedside discuss signs and symptoms of Clostridium difficile colitis and the need to let medical staff know if she develops diarrhea for further evaluation. Clinical Quality Measures DVT/VTE Risk/Contraindication: Risk Factor Score Per Nursin RFS Level Per Nursing on Admit: 2=Moderate ALFONSO HARO MD Dec 05, 2017 13:30
[2017-12-05] MEDS ORDERED: TROUGH ORDER-PHARMACY XX NR (15:00)
[2017-12-05 15:32] VITALS: BP 118/63
[2017-12-05] MEDS: VANCOMYCIN INJECTION 1,000 MG in NS (IVPB) 250 ML IV SCH (16:09)
[2017-12-05 19:09] VITALS: BP 152/67
[2017-12-05] MEDS: PARoxetine 20 MG (PAXIL) TAB PO SCH (20:01)
[2017-12-05] MEDS: ALPRAZolam 0.25 MG (XANAX) TAB PO SCH (20:01)
[2017-12-05] MEDS: SIMvastatin 20 MG (ZOCOR) TAB PO SCH (20:01)
[2017-12-05] MEDS: MELATONIN 3 MG TABLET PO SCH (20:01)
[2017-12-05] MEDS: traZODone 100 MG (DESYREL) TAB PO SCH (20:01)
[2017-12-06 00:01] VITALS: BP 138/69
[2017-12-06] MEDS: VANCOMYCIN INJECTION 1,000 MG in NS (IVPB) 250 ML IV SCH ×2 (03:47→16:58)
[2017-12-06] MEDS: CALCIUM CARB + VIT D 600 MG (CALCARB + D) TAB PO SCH (05:54)
[2017-12-06] MEDS: MULTIVIT W/MINERALS TAB (THERAGRAN M) PO SCH (05:54)
[2017-12-06] MEDS: predniSONE 5 MG TAB PO SCH (05:54)
[2017-12-06] MEDS: CLINDAMYCIN 600 MG/50 ML IVPB 50 ML IV SCH ×3 (05:54→21:14)
[2017-12-06] MEDS: LEVOTHYROXINE 25 MCG (LEVOTHROID) TAB PO SCH (05:54)
[2017-12-06 08:00] VITALS: BP 146/62
[2017-12-06] MEDS: VITAMIN D3 1,000 UNITS (CHOLECALCIFEROL) TABLET PO SCH ×4 (08:42→20:06)
[2017-12-06] MEDS: DOCUSATE SODIUM 100 MG (COLACE) CAP PO SCH ×2 (08:42→20:06)
[2017-12-06] MEDS: ASPIRIN E.C. 81 MG (ECOTRIN) TAB PO SCH ×2 (08:42→20:06)
[2017-12-06] MEDS: FOLIC ACID 1 MG TAB PO SCH (08:42)
[2017-12-06] MEDS: BACITRACIN OINTMENT 28 GM TUBE TOP SCH ×2 (08:43→20:07)
[2017-12-06 13:04] LABS: BASOPHILS % (AUTO) 0 % (0-10); EOSINOPHILS # (AUTO) 0.1 10^3/uL (0.0-0.3); EOSINOPHILS % (AUTO) 1 % (0-10); HEMATOCRIT 36 % (35-52); HEMOGLOBIN 12.3 G/DL (11.5-16.0); LYMPHOCYTES # (AUTO) 0.9 X 10^3 (1.0-4.0); LYMPHOCYTES % (AUTO) 10 % (12-44); MEAN CORPUSCULAR HEMOGLOBIN 32 PG (25-34); MEAN CORPUSCULAR HGB CONC 34 G/DL (32-36); MEAN CORPUSCULAR VOLUME 93 FL (80-99); MONOCYTES % (AUTO) 11 % (0-12); NEUTROPHILS # (AUTO) 7.2 X 10^3 (1.8-7.8); NEUTROPHILS % (AUTO) 79 % (42-75); PLATELET COUNT 258 10^3/uL (130-400); RED BLOOD COUNT 3.87 10^6/uL (4.35-5.85); RED CELL DISTRIBUTION WIDTH 14.6 % (10.0-14.5); WHITE BLOOD COUNT 9.1 10^3/uL (4.3-11.0)
[2017-12-06] MEDS ORDERED: CLIN300C11 PO (14:10)
--- NOTE | 2017-12-06 14:16 | D/C HH Face to Face Order ---
D/C Face to Face Orders Instructions for Patient Patient Instructions/FollowUp: Fwup with me in 2 weeks Fwup with surgery per their request Physician to follow Patient: Dr. Cormier Discharge Diet for Home: Regular Diet Patient Problems: Suprapubic abscess needing dressing changes Patient Data-Allergies,Ht & Wt Patient Allergies: Coded Allergies: No Known Drug Allergies (Unverified , 12/01/17) Height (Feet): 5 Height (Inches): 5.00 Weight (Pounds): 122 Weight (Ounces): 0.0 Home Health Need/Face to Face Date of Face to Face: Dec 06, 2017 Clinical Findings: Immune-compromised, Wound infection I have seen Pt [id number]: Yes Discharged To: Home Diagnosis/Conditions: Suprapubic abscess Problems/Diagnosis/Condition: Patient is Homebound due to: Gurmeet fall risk due to instabilty Homebound Status Due to the above stated illness, injury or surgical procedure (medical condition or diagnosis) and associated clinical findings, the patient is homebound because of his/her inability to leave home except with aid of a supportive device and/or person AND leaving the home requires a considerable and taxing effort or is medically contraindicated. Pt req the following assistanc: [facility] Nursing Orders Home Health Services Order: Nursing Services Home Health Infusion Therapy Site Location: Forearm Certify Stmt I certify that this patient is under my care and that I, a nurse practitioner or a physician; a assistant baseball coach working with me, had a face to face encounter that - meets the physician face to face encounter requirements with this patient as dated. TITO CORMIER DO Dec 06, 2017 14:16
[2017-12-06] MEDS ORDERED: TROUGH ORDER-PHARMACY XX NR (15:00)
[2017-12-06 16:00] VITALS: BP 108/70
--- NOTE | 2017-12-06 17:35 | Progress Note (SOAP) ---
Subjective Date Seen by Provider: Dec 06, 2017 Time Seen by Provider: 17:30 Subjective/Events-last exam doing ok. open wound started bleeding after dressing change. has clotted and stopped after pressure dressing. no pain. no fever/chills. Objective Exam Vital Signs Date Time Temp Pulse Resp B/P (MAP) Pulse Ox O2 Delivery O2 Flow Rate FiO2 12/06/17 16:00 99.6 91 16 108/70 (83) 96 Room Air 12/06/17 08:00 Room Air 12/06/17 08:00 97.6 83 16 146/62 (90) 97 Room Air 12/06/17 00:01 98.2 81 18 138/69 (92) 95 Room Air 12/05/17 19:29 Room Air 12/05/17 19:09 98.6 64 18 152/67 (95) 95 Room Air I & O 12/06/17 07:00 Intake Total 2595 ml Output Total 1000 ml Balance 1595 ml Capillary Refill : General Appearance: No Apparent Distress HEENT: PERRL/EOMI Neck: Full Range of Motion Respiratory: Chest Non Tender, Lungs Clear Cardiovascular: Regular Rate, Rhythm Gastrointestinal: normal bowel sounds, non tender, soft Extremity: Normal Capillary Refill Neurologic/Psychiatric: Alert, Oriented x3 Skin: Normal Color, Other (open wound with no redness erythema, previous bleeding however has stopped and clotted.) Lymphatic: No Adenopathy Results Lab Laboratory Tests 12/06/17 12:59: White Blood Count 9.1, Red Blood Count 3.87L, Hemoglobin 12.3, Hematocrit 36, Mean Corpuscular Volume 93, Mean Corpuscular Hemoglobin 32, Mean Corpuscular Hemoglobin Concent 34, Red Cell Distribution Width 14.6H, Platelet Count 258, Mean Platelet Volume 10.0, Neutrophils (%) (Auto) 79H, Lymphocytes (%) (Auto) 10L, Monocytes (%) (Auto) 11, Eosinophils (%) (Auto) 1, Basophils (%) (Auto) 0, Neutrophils # (Auto) 7.2, Lymphocytes # (Auto) 0.9L, Monocytes # (Auto) 1.0, Eosinophils # (Auto) 0.1, Basophils # (Auto) 0.0 12/06/17 15:30: Vancomycin Level Trough 16.8 Microbiology 12/02/17 Gram Stain - Final, Complete 12/02/17 Anaerobic Culture - Final, Complete No anaerobes isolated 12/02/17 Surgical Culture - Final, Complete Staphylococcus aureus 12/01/17 MRSA Screen - Final, Complete Assessment/Plan Assessment/Plan Assess & Plan/Chief Complaint complex abscess mons pubis s/p debridement. continue abx. discontinue packing wet to dry, continue dressing change dry BID. monitor today then home tomorrow if no bleeding Clinical Quality Measures DVT/VTE Risk/Contraindication: Risk Factor Score Per Nursin RFS Level Per Nursing on Admit: 2=Moderate DIPESH TONY MD Dec 06, 2017 5:35 pm
--- NOTE | 2017-12-06 18:19 | Progress Note (SOAP) ---
Subjective Date Seen by Provider: Dec 06, 2017 Time Seen by Provider: 12:25 Subjective/Events-last exam Fwup suprapubic abscess, RA, hypothyroidism, anxiety, cough. Suprapubic dressing saturated with blood. Objective Exam Vital Signs Date Time Temp Pulse Resp B/P (MAP) Pulse Ox O2 Delivery O2 Flow Rate FiO2 12/06/17 16:00 99.6 91 16 108/70 (83) 96 Room Air 12/06/17 08:00 Room Air 12/06/17 08:00 97.6 83 16 146/62 (90) 97 Room Air 12/06/17 00:01 98.2 81 18 138/69 (92) 95 Room Air 12/05/17 19:29 Room Air 12/05/17 19:09 98.6 64 18 152/67 (95) 95 Room Air I & O 12/06/17 07:00 Intake Total 2595 ml Output Total 1000 ml Balance 1595 ml Capillary Refill : General Appearance: No Apparent Distress Neck: Supple Respiratory: Crackles (bases), Decreased Breath Sounds Cardiovascular: Regular Rate, Rhythm Gastrointestinal: normal bowel sounds, non tender, soft Extremity: Non Tender, No Calf Tenderness, No Pedal Edema Neurologic/Psychiatric: Alert, Oriented x3 Skin: Other (suprapubic abscess area with no erythema and much less induration but packing/dressing saturated with blood) Results Lab Laboratory Tests 12/06/17 12:59: White Blood Count 9.1, Red Blood Count 3.87L, Hemoglobin 12.3, Hematocrit 36, Mean Corpuscular Volume 93, Mean Corpuscular Hemoglobin 32, Mean Corpuscular Hemoglobin Concent 34, Red Cell Distribution Width 14.6H, Platelet Count 258, Mean Platelet Volume 10.0, Neutrophils (%) (Auto) 79H, Lymphocytes (%) (Auto) 10L, Monocytes (%) (Auto) 11, Eosinophils (%) (Auto) 1, Basophils (%) (Auto) 0, Neutrophils # (Auto) 7.2, Lymphocytes # (Auto) 0.9L, Monocytes # (Auto) 1.0, Eosinophils # (Auto) 0.1, Basophils # (Auto) 0.0 12/06/17 15:30: Vancomycin Level Trough 16.8 Microbiology 12/02/17 Gram Stain - Final, Complete 12/02/17 Anaerobic Culture - Final, Complete No anaerobes isolated 12/02/17 Surgical Culture - Final, Complete Staphylococcus aureus 12/01/17 MRSA Screen - Final, Complete Assessment/Plan Assessment/Plan Assess & Plan/Chief Complaint 1. Suprapubic Abscess--on clindamycin,S/P I and D with packing in place but bleeding more heavily today so will check CBC and have surgery assess prior to discharge 2. Cough--improving, continue IS 3. RA--hold immunosuppressive agents while hospitalized except low dose prednisone 4. Hypothyroidism--home dose restarted 5. Anxiety--home meds restarted Clinical Quality Measures Admission Status Admission Dx 1. Suprapubic Abscess--admit to hospital for IV antibiotics and I and D by surgery 2. Rheumatoid Arthritis--stable but on chronic prednisone therapy and immunosuppressive agents so is immunocompromised 3. Anxiety--resume home meds DVT/VTE Risk/Contraindication: Risk Factor Score Per Nursin RFS Level Per Nursing on Admit: 2=Moderate TITO BLOOD DO Dec 06, 2017 18:18
[2017-12-06 20:00] VITALS: BP 99/56
[2017-12-06] MEDS: PARoxetine 20 MG (PAXIL) TAB PO SCH (20:06)
[2017-12-06] MEDS: traZODone 100 MG (DESYREL) TAB PO SCH (20:06)
[2017-12-06] MEDS: ALPRAZolam 0.25 MG (XANAX) TAB PO SCH (20:06)
[2017-12-06] MEDS: MELATONIN 3 MG TABLET PO SCH (20:06)
[2017-12-06] MEDS: SIMvastatin 20 MG (ZOCOR) TAB PO SCH (20:06)
[2017-12-07 00:11] VITALS: BP 126/62
[2017-12-07] MEDS: VANCOMYCIN INJECTION 1,000 MG in NS (IVPB) 250 ML IV SCH (03:13)
[2017-12-07] MEDS: CLINDAMYCIN 600 MG/50 ML IVPB 50 ML IV SCH (05:28)
[2017-12-07] MEDS: CALCIUM CARB + VIT D 600 MG (CALCARB + D) TAB PO SCH (06:01)
[2017-12-07] MEDS: predniSONE 5 MG TAB PO SCH (06:01)
[2017-12-07] MEDS: MULTIVIT W/MINERALS TAB (THERAGRAN M) PO SCH (06:01)
[2017-12-07] MEDS: LEVOTHYROXINE 25 MCG (LEVOTHROID) TAB PO SCH (06:02)
[2017-12-07 08:00] VITALS: BP 130/72
[2017-12-07] MEDS: ASPIRIN E.C. 81 MG (ECOTRIN) TAB PO SCH (09:12)
[2017-12-07] MEDS: VITAMIN D3 1,000 UNITS (CHOLECALCIFEROL) TABLET PO SCH (09:12)
[2017-12-07] MEDS: DOCUSATE SODIUM 100 MG (COLACE) CAP PO SCH (09:12)
[2017-12-07] MEDS: BACITRACIN OINTMENT 28 GM TUBE TOP SCH (09:12)
[2017-12-07] MEDS: FOLIC ACID 1 MG TAB PO SCH (09:12)
[2017-12-07 12:06] VITALS: BP 174/90
[2017-12-07 13:20] VITALS: BP 174/90
--- NOTE | 2017-12-07 17:31 | Discharge Summary ---
Diagnosis/Chief Complaint Date of Admission Dec 01, 2017 at 4:04 pm Date of Discharge Dec 07, 2017 at 1:10 pm Discharge Date: Dec 07, 2017 Discharge Diagnosis 1. Suprapubic abscess growing out MRSA--S/P I and D by surgery 2. RA--on immunosuppressive therapy 3. Anxiety--stable 4. Hypothyroidism--back on home meds 5. Cough with atelectesis and URI--improving Reason Hospital Visit This is an 81 year old female who was brought to my office by her daughter with a 2 week history of worsening redness, pain and bleeding to her hernia area. Upon examination in my office, she was found to have a large suprapubic abscess with an open area inferiorly draining. It was decided to directly admit her for IV antibiotics and I and D of the abscess by surgery. Discharge Summary Hospital Course Hospital Course This is an 81 year old female who was brought to my office by her daughter with a 2 week history of worsening redness, pain and bleeding to her hernia area. Upon examination in my office, she was found to have a large suprapubic abscess with an open area inferiorly draining. It was decided to directly admit her for IV antibiotics and I and D of the abscess by surgery. She was admitted to the medical floor and started on IV clindamycin. She was taken the following day by surgery for I and D of the abscess which was loculated and had to have extensive debridement. The wound was then packed with iodoform BID following surgery. Her wound culture grew out MRSA so IV vancomycin was restarted. She also had a cough with bibasilar crackles so IS was started and her cough is much improved on discharge. Her hospital stay was prolonged due to need for longer IV antibiotics due to her immunocompromised state from the DMARDs and chronic prednisone she takes for her rheumatoid arthritis. She also had some bleeding from her wound saturating through the dressings which prolonged her hospital stay one day longer. The packing was removed from her wound a pressure dressings were started and on the day of discharge, her dressing is dry and her abscess area is without erythema or pain and no further induration. She will be discharged back to [place] with home health and clindamycin and pressure dressing changes BID and prn. She is instructed to hold her hizentra this week and may resume it next week. She will followup with me on December 16 and with surgery in 2 weeks unless the wound has increased bleeding or any signs of worsening infection. Labs Laboratory Tests 12/05/17 15:13: Vancomycin Level Trough 7.3L 12/06/17 12:59: Red Blood Count 3.87L, Red Cell Distribution Width 14.6H, Neutrophils (%) (Auto ) 79H, Lymphocytes (%) (Auto) 10L, Lymphocytes # (Auto) 0.9L 12/06/17 15:30: Procedures None. Discharge Physical Examination Allergies: Coded Allergies: No Known Drug Allergies (Unverified , 12/01/17) Vitals & I&Os Vital Signs Date Time Temp Pulse Resp B/P (MAP) Pulse Ox O2 Delivery O2 Flow Rate FiO2 12/07/17 13:20 96 16 174/90 92 Room Air 12/07/17 12:06 97.9 General Appearance: Alert, Oriented X3, Cooperative, No Acute Distress Respiratory: Other (crackles in bases) Cardiovascular: Regular Rate Extremities: No Clubbing, No Cyanosis, No Edema Skin: Other (suprapubic area with no pain and no erythema and dry dressing in place) Psych/Mental Status: Mental Status NL Discharge Home Medications Reviewed and agree with Discharge Medication list on patient's Discharge Instruction sheet Instructions to Patient/Family Please see electronic discharge instructions given to patient. Clinical Quality Measures DVT/VTE Risk/Contraindication: Risk Factor Score Per Nursin RFS Level Per Nursing on Admit: 2=Moderate TITO BLOOD DO Dec 07, 2017 5:31 pm
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
== END 2017-12-07 13:10 | disposition home health service (06) | DRG 603 ==
LOC: 4TH 16:04
PROVIDERS: ADMIT Family Medicine; ATTEND Family Medicine
PROC: 0JBB3ZX Excision of Perineum Subcutaneous Tissue and Fascia, Percutaneous Approach, Diagnostic (ICD-10-PCS; principal; 2017-12-02 15:15)
DX: L02.215 Cutaneous abscess of perineum (principal); B95.62 Methicillin resistant Staphylococcus aureus infection as the cause of diseases classified elsewhere; N99.820 Postprocedural hemorrhage of a genitourinary system organ or structure following a genitourinary system procedure; I34.1 Nonrheumatic mitral (valve) prolapse; M06.9 Rheumatoid arthritis, unspecified; E03.9 Hypothyroidism, unspecified; F41.9 Anxiety disorder, unspecified; R05 Cough; Z79.52 Long term (current) use of systemic steroids; Z79.899 Other long term (current) drug therapy
CPT/HCPCS: 36415; 71046; 80053; 80202; 85025; 87070; 87075; 87077; 87081; 87186; 87205; 88304; 94664

== ENCOUNTER 2018-11-21 10:29 | Emergency (ER) | payer MEDICARE ==
[~2018-11-21] VITALS: Ht 167.6 cm; Wt 57.2 kg
[~2018-11-21 10:29] MED LIST: ACET325T38 PO; ALPR0.254 PO; ASPI-586 PO; CALC1TAB PO; CHOL100048 PO; CLIN300C11 PO; DOCU100C37 PO; FOLI0.4T2 PO; FOLIC ACI PO; IMMU2VIA SQ; LEVO25TA5 PO; MELA10TA2 PO; METH25VI57 SC; METHOTREXATE SQ; MULT-642 PO; PARO40TA3 PO; PRAV40TA PO; PRED5TAB PO; PRED5TAB46 PO; TRAM-42 PO; TRAZ-190 PO; [UNRECOGNIZED DRUG - CODE]; [UNRECOGNIZED DRUG - OTHER]; [UNRECOGNIZED DRUG - OTHER] PO
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
--- NOTE | 2018-11-21 11:51 | Diagnostic Imaging Report ---
PROCEDURE: CT head and CT cervical spine without contrast. TECHNIQUE: Multiple contiguous axial images were obtained through the brain and cervical spine without the use of intravenous contrast. Sagittal and coronal reformations through the cervical spine were then performed. INDICATION: Fall with head and neck pain. COMPARISON: No prior studies are available for comparison. CT HEAD: The ventricles and sulci are appropriate for the patient's age. Mild periventricular hypodensity is noted consistent with senescent change. No sulcal effacement, midline shift or hemorrhage is detected. The cisterns are patent. The visualized paranasal sinuses are clear. IMPRESSION: Senescent changes. No acute intracranial process is detected. CT CERVICAL SPINE: There is some straightening of the normal cervical lordotic curvature. There is a fracture involving the base of the odontoid, consistent with a type II odontoid fracture. There is slight posterior angulation of the odontoid in relation to the body of C2. No significant displacement is seen. The bony canal is patent. No other fractures are identified. There is significant degenerative disc disease with marked disc space narrowing and marginal spurring at C3-4, C4-5, C5-6, and C6-7 levels. Prevertebral tissues are within normal limits. IMPRESSION: Type II odontoid fracture with mild posterior tilt to the odontoid in relation to the body of C2. Central canal is widely patent. Reportedly, this odontoid fracture was known about and was sustained in the past. There is no evidence of callus formation or significant healing. Fracture remains clearly visible. No additional fractures are seen. There is generalized cervical spondylosis present. Dictated by: Dictated on workstation # [id number]
--- NOTE | 2018-11-21 11:58 | Diagnostic Imaging Report ---
INDICATION: Status post fall yesterday.. TECHNIQUE: Single view chest 11:32 AM. CORRELATION STUDY: 12/02/2017 FINDINGS: The heart size, mediastinal configuration and pulmonary vascularity are within normal limits. The lungs are clear with no consolidating infiltrate. There is no significant effusion or pneumothorax. Parenchymal density in the high right paramediastinal region is present. This may be owing to tortuous ectatic vessels. IMPRESSION: 1. Chronic appearing lung parenchyma with what appears to be likely asymmetric areas of fibrosis or perhaps cavitation of the left lung base. No definitive superimposed acute abnormality. Dictated by: Dictated on workstation # [id number]
--- NOTE | 2018-11-21 12:58 | NUR ---
PT AMBULATED WITH TWO STAFF ASSISTANCE. PT REQUIRED MINIMAL ASSISTANCE. PT DID HAVE MOMENTS OF BEING UNSTEADY.
--- NOTE | 2018-11-21 15:37 | NUR ---
CM/SS, respond to consult in Emergency Dept. PLAN: Coordinated new emergency admission to [facility], daughter/family preferred facility. The [facility] Assessment will be completed by SNF per protocols. SUMMARY: Patient has established residency with [facility] in [place]. She apparently had a fall with bruising and weakness yesterday. She was assessed at [facility] and our hospital today without positive findings for admission criteria. Requiring assist for safe ambulation. Institutional Research Coordinator discussed prior level of functioning with patient, daughter Yoshi Coleman Mgr/Marcia. It was proposed that patient return to [facility] for an interim period while community nursing facility placement would be secured. [place] Marcia indicated patient had shown recent decline but had continued to be able to ambulate with [facility] independently prior to fall. There was reluctance to accept her back due to this status change and NH was pursued. Zuleyma indicated she and her family all agreed their choice was [facility]. Referral was completed and they accepted this date. Daughter will transport. Institutional Research Coordinator has coordinated that family will cone picker Rx at [place] and deliver to [facility] today. They can use what is bubble-packed which is all Rx. Some OTC items are not. Institutional Research Coordinator also advised Zuleyma to have family pack about 5 days of clothing so that patient can be somewhat settled and reduce trips for family. Intervention appears complete.
[2018-11-21 16:49] VITALS: BP 131/74
== END 2018-11-21 16:49 | disposition home or self-care (01) ==
LOC: EDUNIT# 10:29 → ER 10:30
DX: R53.1 Weakness (principal); M54.2 Cervicalgia; R51 Headache; R40.2142 Coma scale, eyes open, spontaneous, at arrival to emergency department; R40.2252 Coma scale, best verbal response, oriented, at arrival to emergency department; R40.2362 Coma scale, best motor response, obeys commands, at arrival to emergency department; M81.0 Age-related osteoporosis without current pathological fracture; M06.9 Rheumatoid arthritis, unspecified; F41.9 Anxiety disorder, unspecified; Z87.19 Personal history of other diseases of the digestive system; Z79.82 Long term (current) use of aspirin; Z79.52 Long term (current) use of systemic steroids; W01.198A Fall on same level from slipping, tripping and stumbling with subsequent striking against other object, initial encounter; Y92.002 Bathroom of unspecified non-institutional (private) residence as the place of occurrence of the external cause
CPT/HCPCS: 70450; 71045; 72125

== ENCOUNTER → 2021-06-03 | Outpatient (CLI) | payer OTHER, MEDICARE ==
[~2021-06-03] MED LIST changes: +ALPR.25T PO; -ALPR0.254 PO; -CLIN300C11 PO; +CLIN300C12 PO; -FOLI0.4T2 PO; +FOLI0.4T6 PO; -TRAZ-190 PO; +TRAZ-227 PO
== END ==
LOC: ORTHO 10:30
PROVIDERS: ATTEND Orthopaedic Surgery
DX: S42.202A Unspecified fracture of upper end of left humerus, initial encounter for closed fracture (principal); X58.XXXA Exposure to other specified factors, initial encounter
CPT/HCPCS: 99202

== ENCOUNTER → 2021-06-17 | Outpatient (CLI) | payer OTHER, MEDICARE ==
--- NOTE | 2021-06-17 10:38 | Diagnostic Imaging Report ---
INDICATION: Followup fracture. COMPARISON: 05/31/2021. FINDINGS: Multiple radiographic views of the left shoulder were obtained. Again identified is the nonacute fracture of the humeral head. There is mild residual displacement of the lateral fracture fragment. Note is also made of mild narrowing of the acromiohumeral joint space. The glenohumeral joint space and AC joint space are maintained. No unexpected radiopaque foreign bodies are seen. The included portions of the left hemithorax are clear. IMPRESSION: 1. Redemonstration of the nonacute fracture of the left humeral head. 2. Narrowing of the acromiohumeral joint space. Findings can be seen with underlying chronic rotator cuff tear. Dictated by: Dictated on workstation # [id number]
== END ==
LOC: ORTHO 10:01
PROVIDERS: ATTEND Orthopaedic Surgery
DX: S42.215D Unspecified nondisplaced fracture of surgical neck of left humerus, subsequent encounter for fracture with routine healing (principal); X58.XXXD Exposure to other specified factors, subsequent encounter
CPT/HCPCS: 73030; G0463; 99212